=== PATIENT | male | born 1955 | race Hispanic/Latino ===

== ENCOUNTER 2021-06-05 10:57 | Emergency (ER) | payer MEDICARE ==
[~2021-06-05 10:57] MED LIST: Iopamidol 370 76% 100 ML VIAL ONE
[2021-06-05] MEDS ORDERED: Sodium Chloride 0.9% 1,000 ML ONE (12:16)
[2021-06-05] MEDS ORDERED: Nitroglycerin 2% Ointment 1 INCH/1 GM Packet ONE ×2 (12:16→13:16)
[2021-06-05] MEDS ORDERED: Ondansetron PF 4 MG/2 ML Vial ONE ×2 (12:16→16:14)
[2021-06-05 12:25] LABS: #Basophils 0.1 thou/uL (0.0-0.2); #Eosinphils 0.3 thou/uL (0.0-0.7); #Lymphocytes 2.4 thou/uL (1.20-3.40); #Monocytes 0.6 thou/uL (0.11-0.59); #Neutrophils 5.3 thou/uL (1.40-6.50); %Eosinophils 3.7 % (0.0-10.0); %Monocytes 7.1 % (0.0-10.0); %Neutrophils 61.2 % (42.0-75.0); Hemoglobin 16.6 g/dL (14.0-18.0); Mean Corpuscular HGB CONC 33.6 g/dL (32.0-36.0); Mean Corpuscular Hemoglobin 34.3 pg (27.0-31.0); Mean Platelet Volume 8.1 fL (7.4-10.4); Platelet Count 214 thou/uL (130-400); RBC Distribution Width 12.2 % (11.5-14.5); Red Blood Cell (RBC) Count 4.84 mill/uL (4.70-6.10); White Blood Cell (WBC) Count 8.7 thou/uL (4.8-10.8)
[2021-06-05 12:32] LABS: ALT (SGPT) 23 U/L (8-55); AST (SGOT) 17 U/L (5-34); Albumin 4.2 g/dL (3.4-4.8); Alkaline Phosphatase 79 U/L (40-110); Anion Gap 16 mmol/L (10-20); BUN (Urea Nitrogen) 16 mg/dL (8.4-25.7); Bilirubin, Total 0.8 mg/dL (0.2-1.2); Calc. Creatinine Clearance 0 mL/min (70-130); Calcium 9.5 mg/dL (7.8-10.44); Carbon Dioxide 23 mmol/L (23-31); Chloride 99 mmol/L (98-107); Globulin 3.2 g/dL (2.4-3.5); Glucose 216 mg/dL (80-115); Protein, Total 7.4 g/dL (5.8-8.1); Sodium 134 mmol/L (136-145)
[2021-06-05 12:40] LABS: PTT 35.2 sec (22.9-36.1); Prothrombin Time 13.6 sec (12.0-14.7)
[2021-06-05 14:11] LABS: Bilirubin Negative (Negative); Blood, Urine Trace (Negative); Clarity Clear (Clear); Glucose, Urine (Dipstick) 250 mg/dL (Negative); Ketone, Urine Negative (Negative); Leukocyte Trace (Negative); Nitrite Negative (Negative); Protein, Urine (Dipstick) 100 mg/dL (Neg-Trace); Specific Gravity, Urine 1.015 (1.005-1.030); Urobilinogen 0.2 mg/dL (Less than 2)
[2021-06-05 14:20] LABS: RBC/HPF 0-3 HPF (0-3); Squamous Epithelial 0-3 HPF (0-3); WBC/HPF 0-3 HPF (0-3)
[2021-06-05] MEDS ORDERED: Morphine 4 MG/ML VIAL ONE (14:31)
[2021-06-05 17:34] LABS: SARS-CoV-2 NAA Rapid Test Not Detected (NotDetected)
== END 2021-06-05 19:15 | disposition short-term general hospital (02) ==
LOC: NAV ERS 10:57
DX: K82.8 Other specified diseases of gallbladder (principal); I16.0 Hypertensive urgency; E11.9 Type 2 diabetes mellitus without complications; I10 Essential (primary) hypertension; Z79.899 Other long term (current) drug therapy; Z20.822 Contact with and (suspected) exposure to COVID-19
CPT/HCPCS: 70450; 71045; 71275; 74174; 80053; 83605; 83690; 83880; 84484; 85025; 85610; 85730; 93005; 94760; U0002; 81003; 81015; 96374; 96375; 96376; J2270; J2405; J7050; Q9967